=== PATIENT | male | born 1955 | race Caucasian/White ===

== ENCOUNTER 2017-09-10 09:00 | Inpatient (IN) | payer BC ==
[2017-09-10 12:08] VITALS: BMI 25.5
[2017-09-17] MEDS ORDERED: CEFAZOLIN/Water 2 GM/20 ML SYRINGE ONE (08:20)
[2017-09-17] MEDS ORDERED: HYDROcodone/Acetaminophen 10/325 mg Tablet PO PRN ×2 (09:15)
[2017-09-17] MEDS ORDERED: Tranexamic Acid 1,000 MG in Sodium Chloride 0.9% 100 ML IVPB SCH (09:15)
[2017-09-17] MEDS ORDERED: Acetaminophen 325 MG TAB PO PRN (09:15)
[2017-09-17] MEDS ORDERED: Zolpidem Tartrate 5 MG TAB PO PRN ×2 (09:15→10:15)
[2017-09-17] MEDS ORDERED: Ondansetron HCl/PF 4 MG/2 ML Vial IVP PRN ×3 (09:15→11:57)
[2017-09-17] MEDS ORDERED: Promethazine HCl 25 MG/ML VIAL IM PRN ×3 (09:15→11:57)
[2017-09-17] MEDS ORDERED: diphenhydrAMINE 25 MG CAP PO PRN ×2 (09:15→10:15)
[2017-09-17] MEDS ORDERED: Fentanyl 100 MCG/2 ML VIAL SLOW IVP PRN ×2 (09:15)
[2017-09-17] MEDS ORDERED: traMADol HCl 50 MG TAB PO PRN ×3 (09:15→10:15)
--- NOTE | 2017-09-17 09:15 | RAD ---
TWO VIEWS OF THE CHEST: COMPARISON: None. HISTORY: Preoperative radiograph. FINDINGS: Two views of the chest show normal sized cardiomediastinal silhouette. There is no evidence of consol idation, mass, or pleural effusion. Degenerative changes are seen in the spine. IMPRESSION: No evidence of acute cardiopulmonary disease. POS: [facility]
[2017-09-17] MEDS ORDERED: Midazolam HCl 2 mg/2 ml Vial ONE (09:34)
[2017-09-17] MEDS ORDERED: Fentanyl 100 MCG/2 ML VIAL ONE ×3 (09:34→12:58)
[2017-09-17] MEDS ORDERED: diphenhydrAMINE 50 MG/ML VIAL IM PRN (10:15)
[2017-09-17] MEDS ORDERED: Naloxone HCl 0.4 mg/ml Vial IVP PRN (10:15)
[2017-09-17] MEDS ORDERED: Naloxone HCl 0.4 mg/ml Vial IV PRN (10:15)
[2017-09-17] MEDS ORDERED: diphenhydrAMINE 50 MG/ML VIAL IVP PRN (10:15)
[2017-09-17] MEDS ORDERED: Promethazine HCl 25 MG SUPP PR PRN (10:15)
[2017-09-17] MEDS ORDERED: HYDROcodone/Acetaminophen 5/325 mg Tablet PO PRN ×2 (10:15)
[2017-09-17] MEDS ORDERED: Bupivacaine 0.25% 10 ML VIAL EPIDURAL PRN (10:15)
[2017-09-17] MEDS ORDERED: fentaNYL Citrate/PF 1,250 MCG, Bupivacaine 25 ML in Sodium Chloride 0.9% 250 ML 200 ML EPIDURAL SCH (10:15)
[2017-09-17] MEDS ORDERED: Hydrocerin (Eucerin) Cream 120 gm Jar TOP PRN (10:15)
[2017-09-17] MEDS ORDERED: Bupivacaine/Epinephrine 0.25% 30 ML VIAL ONE (10:34)
[2017-09-17] MEDS ORDERED: Promethazine HCl 25 MG/ML VIAL SLOW IVP PRN (11:57)
[2017-09-17] MEDS ORDERED: Ketorolac Tromethamine 30 MG/ML VIAL ONE (12:34)
--- NOTE | 2017-09-17 13:21 | OP ---
DATE OF PROCEDURE: 09/17/2016 PREOPERATIVE DIAGNOSIS: End-stage bicompartmental osteoarthritis, left hip. POSTOPERATIVE DIAGNOSIS: End-stage bicompartmental osteoarthritis, left hip. OPERATIVE PROCEDURE: Press-Fit left total hip arthroplasty. SURGEON: Percy Montes De Oca M.D. BRICK SORTER: Fred Ford PA-C. ANESTHESIA: General via endotracheal tube augmented with indwelling epidural. COMPONENTS USED: [employer], Accolade Press-Fit size 3 hip stem with Trident PSL [address] acetabular shell Press-Fit, 10 degree polyethylene fixed bearing insert, and 36 mm ceramic -2.5 n dylan length femoral head. ESTIMATED BLOOD LOSS: Less than 100 mL. FINDINGS: End-stage severe degenerative bicompartmental disease, bone on bone arthrosis, periarticul ar osteophyte formation, hemarthrosis, large serous effusion with hemarthrosis. DRAINS: None. SPECIMENS: None. COMPLICATIONS: None. COUNTS: Correct. INDICATIONS FOR SURGERY: Sarmad is a 61-year-old white male who has had progressive left hip, groin, and thigh pain amplified from standing and walking for the last 5-7 years. He has failed conservativ e management and would like to proceed with total hip arthroplasty as a definitive treatment of pain. PROCEDURE IN DETAIL: After informed consent was obtained in the preoperative holding area, the patie nt was taken to the operative suite where general anesthesia was induced. The patient was then posit ioned in the lateral decubitus position. The hip was then prepped and draped in usual sterile fashio n. The patient received preoperative antibiotics. Prior to incision, time-out was called and all me mbers of the surgical team agreed upon site, surgeon, and patient. After this, a longitudinal incisi on was made directly over the trochanter, noted by palpation extending 2 fingerbreadths above and bel ow the trochanter. The deeper subcutaneous layer was undermined with Bovie electrocautery. The ilio tibial band was encountered and incised sharply and the plane below this was developed bluntly. A christy retractor was placed to hold this opened. The lateral aspect of the trochanter and the abduct or muscles were encountered and then reflected anteriorly off the trochanter using Bovie electrocaute ry. Once this was completed, the anterior capsule was then encountered and identified and copious ca psulotomy was carried out, exposing the femoral neck and head. Dislocation maneuver was then performe d and an in situ provisional neck cut was then made using the oscillating saw. Attention was then tu rned to acetabular preparation and sequential reaming was carried out up to the appropriate diameter and a trial was then malleted into place with good firm resistance and no pullout. The permanent anjel tabular shell was then malleted squarely into place, as was the appropriate liner. Once completed, t he wound was copiously irrigated and attention was then turned to femoral preparation. Flexion and ex ternal rotation was performed of the exposed thigh and femoral elevators were then placed at the prox imal aspect of the wound. Canal finder was used to establish the length of the canal and sequential reaming was carried out, followed by broaching. Once the appropriate stability was established with the trial broaches with both flexion, extension and rotational stability, we did trial with neutral a nd 2 mm offset incremental necks. Once the appropriate size was decided upon, with good stability no linda with flexion, extension, internal and external rotation and shuck being negative, we removed the femoral trial broach and malletted into place the permanent prosthesis with good firm fit, which was also stable to rotation. Again, the hip felt very stable to flexion, extension, internal and externa l rotation. Leg lengths appeared near anatomic clinically and we were quite happy with prosthesis pl acement. Copious irrigation was then carried out through the entirety of the wound. Primary closure of the abductors was accomplished with interrupted #2 Vicryl knbbal-[id number]-edccr stitches and the IT ban d was then closed with interrupted #2 Vicryl, oversewn with a #2 running barbed Quill stitch. Subcut aneous fascia was closed with running barbed Quill stitch and a subcuticular Monocryl barbed Quill st itch was used for skin closure and augmented with skin cement. A sterile dressing was applied. The p rocedure was terminated without any complication. All counts were correct. The patient was awakened in the operative suite and taken to the recovery room in stable condition.
[2017-09-17] MEDS ORDERED: Milk Of Magnesia 30 ML UDCUP PO PRN (13:43)
[2017-09-17] MEDS ORDERED: Bisacodyl 10 MG SUPP PR PRN (13:43)
[2017-09-17] MEDS ORDERED: Senokot 8.6 MG TAB PO PRN (13:43)
[2017-09-17] MEDS ORDERED: hydrALAZINE 20 MG/ML VIAL SLOW IVP PRN (13:43)
[2017-09-17] MEDS ORDERED: Artificial Tears 18 DROP/0.9 ML EA EYE PRN (13:43)
[2017-09-17] MEDS ORDERED: Diabetic Tussin 200 MG/10 ML UDCUP PO PRN (13:43)
[2017-09-17] MEDS ORDERED: Mag-Al 1200 mg/1200 mg/30 ML UDCUP PO PRN (13:43)
[2017-09-17] MEDS ORDERED: Loperamide HCl 2 MG CAP PO PRN (13:43)
[2017-09-17] MEDS ORDERED: Chloraseptic Spray 180 ml Bottle PO PRN (13:43)
[2017-09-17] MEDS ORDERED: Ondansetron ODT 4 MG TAB PO PRN (13:43)
[2017-09-17] MEDS ORDERED: Eucerin (Mineral Oil/Petrolatum,White) 30 gm Jar TOP PRN (13:43)
[2017-09-17] MEDS ORDERED: Lidocaine 1% PF 5 ML VIAL ONE (13:48)
[2017-09-17] MEDS ORDERED: PROPOFOL 200 MG/20 ML VIAL ONE (13:48)
[2017-09-17] MEDS ORDERED: Ketorolac Tromethamine 30 MG/ML VIAL IVP SCH (14:00)
[2017-09-17] MEDS: Sodium Chloride 0.9% 1,000 ML IV SCH ×3 (14:05→23:52)
[2017-09-17] MEDS: Ketorolac Tromethamine 30 MG/ML VIAL IVP SCH ×3 (14:07→23:43)
--- NOTE | 2017-09-17 14:27 | CON ---
DATE OF CONSULTATION: 09/17/2017 PRIMARY CARE PHYSICIAN: Dr. Sarmad Stevens PRIMARY ATTENDING: Dr. Percy Montes De Oca REASON FOR ADMISSION: Left total hip replacement. REASON FOR CONSULT: Medical comanagement. HISTORY OF PRESENT ILLNESS: A 61-year-old male who has underlying history of degenerative joint disease. Previously he required right total knee replacement for osteoarthritis. Subsequently, he was having worsening of left hip pain. The patient tried all conservative measures as an outpatient basis including pain medication, but his pain on the left side kept getting worse to the point that was limiting his daily activities and that is why the patient decided to go for left hip replacement. The patient had a left hip surgery today by Dr. Percy Montes De Oca without any immediate complication. Postoperatively, the patient was transferred to Joint surgical floor. At that point, [facility] team was consulted for medical management. Patient has underlying history of hypertension which remains pretty much well controlled. Patient denies any chest pain, palpitation, shortness of breath. He denies any orthopnea, PND or leg swelling. He denies any constipation, diarrhea, melena or hematochezia. He denies any UTI symptoms. Currently, the patient denies any pain. He has epidural in place and his pain is well controlled. REVIEW OF SYSTEMS: The following complete review of systems was negative, unless otherwise mentioned in the HPI or below: Constitutional: Weight loss or gain, ability to conduct usual activities. Skin: Rash, itching. Eyes: Double vision, pain. ENT/Mouth: Nose bleeding, neck stiffness, pain, tenderness. Cardiovascular: Palpitations, dyspnea on exertion, orthopnea. Respiratory: Shortness of breath, wheezing, cough, hemoptysis, fever or night sweats. Gastrointestinal: Poor appetite, abdominal pain, heartburn, nausea, vomiting, constipation, or diarrhea. Genitourinary: Urgency, frequency, dysuria, nocturia. Musculoskeletal: Pain, swelling. Neurologic/Psychiatric: Anxiety, depression. Allergy/Immunologic: Skin rash, bleeding tendency. Please see my HPI for pertinent positive and negative. All other review of systems reviewed and negative except as mentioned in the HPI. HOSPITAL COURSE: Reviewed. PAST MEDICAL HISTORY: Hypertension, history of hayfever, degenerative joint disease. PAST SURGICAL HISTORY: Right total knee replacement, which was done by Dr. Laws in 2014. PAST PSYCHIATRIC HISTORY: Reviewed and negative. FAMILY HISTORY: Hypertension runs among several family members. Mother diagnosed with an unknown type of cancer and she is . SOCIAL HISTORY: The patient is . He drinks alcohol occasionally. He denies any smoking. He denies any other illicit drug abuse. ALLERGIES: BACTRIM DS and ATENOLOL. CURRENT HOME MEDICATIONS: Aspirin 81 mg p.o. daily, Cardizem-CD 360 mg p.o. daily, glucosamine chondroitin sulfate 1 capsule p.o. daily, multivitamin 1 tablet p.o. daily, potassium chloride 10 mEq p.o. daily, turmeric 500 mg p.o. daily, Diovan with HCTZ 320/25 one tablet p.o. daily. PHYSICAL EXAMINATION: VITAL SIGNS: Currently, blood pressure 122/87, pulse 57, respiratory rate 16, temperature 97.5, saturation 99% on room air, weight 178 pounds. GENERAL: The patient is currently alert, awake, no obvious acute distress. HEENT: Head; normocephalic, atraumatic. Eyes; pupils round, reactive to light. Extraocular muscle intact. ENT: Oropharynx within normal limits. Moist mucous membranes. No oral lesion, no pharyngeal erythema, no exudate. NECK: Supple, no JVD, no thyromegaly, no carotid bruit, no jugular venous distention. LUNGS: Clear to auscultation without any rhonchi or rales. CARDIAC: S1, S2 regular. No murmur, no gallop, no rub. ABDOMEN: Soft, bowel sounds present, nontender, nondistended. No organomegaly , no mass, no suprapubic tenderness. BACK: Unremarkable, no CVA tenderness. EXTREMITIES: Upper extremity passive movement of all joints are normal. Lower extremities; the patient's left hip surgical site is covered with a dressing. SCD in place, epidural in place. No edema, no calf tenderness. Good distal pulsation. SKIN: No skin rash. HEMATOLOGICAL: No lymphadenopathy. PSYCHIATRIC: Normal affect. NEUROLOGIC: Nonfocal examination. SIGNIFICANT LABS: CBC: WBC 5.6, hemoglobin 14.4, platelet 255. INR 1.0. BMP : Sodium 138, potassium 4.5, chloride 105, carbon dioxide 24, anion gap 15, BUN 23, creatinine 0.93, glucose 100, calcium 9.7. Urinalysis normal. Chest x- ray based on my review, no acute cardiopulmonary process. Hip x-ray reviewed by me, suggestive postoperative changes. ASSESSMENT AND PLAN: 1. Status post left total hip replacement. Currently, patient is on aspirin 325 mg p.o. b.i.d. for deep venous thrombosis prophylaxis as per protocol. We will start Pepcid 20 mg p.o. b.i.d. for GI prophylaxis. Patient will continue ferrous gluconate 324 mg p.o. b.i.d. postoperatively. The patient's pain will be controlled with pain medication. The patient will have PT, OT while in hospital as per [facility] protocol treatment. 2. Hypertension, currently well controlled. We will start losartan with hydrochlorothiazide 360/25 one tablet p.o. daily along with Cardizem-CD 360 mg p.o. daily. 3. Osteoarthritis. The patient required previously a right total knee replacement, and now status post left hip replacement. Pain will be controlled with pain medication. 4. Deep venous thrombosis prophylaxis. Patient is on aspirin 325 mg p.o. b.i.d. as per protocol. 5. Gastrointestinal prophylaxis, Pepcid 20 mg p.o. b.i.d. 6. Code status: The patient is FULL CODE. The patient is making decisions by himself. Disposition plan based on clinical course. Thank you for the consult. We will follow up with you while in hospital. Plan of care discussed with the patient in detail. MTDD
--- NOTE | 2017-09-17 14:37 | RAD ---
TWO VIEWS LEFT HIP: DATE: 09/17/17. HISTORY: Postop total hip replacement. COMPARISON: None available. FINDINGS: There are postsurgical changes related to placement left total hip prosthesis. No hardware complicat ions are seen. There is no fracture or dislocation. Subcutaneous emphysema is seen about the left h ip. No other findings. IMPRESSION: Postsurgical changes related to recent placement of left total hip prosthesis. POS: [facility]
[2017-09-17] MEDS: CEFAZOLIN/Water 2 GM/20 ML SYRINGE SLOW IVP SCH ×2 (16:21→23:43)
[2017-09-17] MEDS: Famotidine 20 MG TAB PO SCH (20:13)
[2017-09-17] MEDS: Aspirin 325 MG TAB PO SCH (20:13)
[2017-09-18] MEDS: Ketorolac Tromethamine 30 MG/ML VIAL IVP SCH ×4 (05:38→23:45)
[2017-09-18] MEDS: Valsartan 80 MG TAB PO SCH (07:13)
[2017-09-18] MEDS: Hydrochlorothiazide 25 MG TAB PO SCH (07:14)
[2017-09-18 08:02] LABS: Hemoglobin 11.8 g/dL (14.0-18.0); Mean Corpuscular HGB CONC 33.9 g/dL (32.0-36.0); Mean Corpuscular Hemoglobin 30.4 pg (27.0-31.0); Mean Corpuscular Volume 89.9 fl (80.0-94.0); Mean Platelet Volume 7.9 fL (7.4-10.4); Platelet Count 213 thou/uL (130-400); RBC Distribution Width 12.1 % (11.5-14.5); Red Blood Cell (RBC) Count 3.88 mill/uL (4.70-6.10); White Blood Cell (WBC) Count 12.9 thou/uL (4.8-10.8)
[2017-09-18] MEDS: Ferrous Gluconate 324 MG TAB PO SCH ×2 (08:12→17:34)
[2017-09-18] MEDS: Aspirin 325 MG TAB PO SCH ×2 (08:12→21:14)
[2017-09-18] MEDS: Potassium Chloride 10 MEQ TAB PO SCH (08:13)
[2017-09-18] MEDS: Multivitamin W/ Minerals 1 TAB PO SCH (08:13)
[2017-09-18] MEDS: Famotidine 20 MG TAB PO SCH ×2 (08:13→21:14)
[2017-09-18] MEDS: Senokot S 8.6-50 MG TAB PO SCH ×2 (08:13→21:14)
[2017-09-18] MEDS ORDERED: MULTIVITAMIN PO SCH (09:00)
--- NOTE | 2017-09-18 10:12 | PDOC.PN ---
- Subjective Encounter Start Date: 09/18/17 Encounter Start Time: 08:10 -: old records requested/rev Patient seen and examined for medical problems. No new complaints. No overnight events pain controlled, doing well - Objective Resuscitation Status: Resuscitation Status FULL:Full Resuscitation MAR Reviewed: Yes Vital Signs & Weight: Vital Signs (12 hours) Temp Pulse Resp BP Pulse Ox 09/18/17 07:33 99.2 F 67 16 165/80 H 99 09/18/17 04:39 98.8 F 80 16 171/77 H 97 09/17/17 23:43 99.4 F 87 16 164/79 H 98 Weight Weight 178 lb I&O: 09/17/17 09/18/17 09/19/17 06:59 06:59 06:59 Intake Total 2600 Output Total 1300 Balance 1300 Result Diagrams: 09/18/17 07:43 Phys Exam - Physical Examination Constitutional: NAD HEENT: PERRLA, moist MMs, sclera anicteric Neck: no JVD, supple Respiratory: no wheezing, no rales, no rhonchi Cardiovascular: RRR, no significant murmur, no rub Gastrointestinal: soft, non-tender, no distention, positive bowel sounds Musculoskeletal: no edema, pulses present epidural in place, surgical site with dressing Neurological: non-focal, normal sensation, moves all 4 limbs Psychiatric: normal affect, A&O x 3 Skin: no rash, normal turgor Dx/Plan (1) Status post total hip replacement, left Code(s): Z96.642 - PRESENCE OF LEFT ARTIFICIAL HIP JOINT Status: Acute (2) Hypertension Code(s): I10 - ESSENTIAL (PRIMARY) HYPERTENSION Status: Chronic (3) Osteoarthritis Code(s): M19.90 - UNSPECIFIED OSTEOARTHRITIS, UNSPECIFIED SITE Status: Chronic - Plan cont current plan of care, PT/OT * pt is on aspirin for DVT prophylaxis as per [facility] protocol * continue PT/OT as per [facility] protocol * pain control with pain meds as below * epidural as per anesthesia * medication reviewed as below * symptomatic treatment * continue pepcid for GI prophylaxis. Review of Systems - Review of Systems Eyes: negative: Pain, Vision Change, Conjunctivae Inflammation, Eyelid Inflammation, Redness, Other ENT: negative: Ear Pain, Ear Discharge, Nose Pain, Nose Discharge, Nose Congestion, Mouth Pain, Mouth Swelling, Throat Pain, Throat Swelling, Other Respiratory: negative: Cough, Dry, Shortness of Breath, Hemoptysis, SOB with Excertion, Pleuritic Pain, Sputum, Wheezing Cardiovascular: negative: chest pain, palpitations, orthopnea, paroxysmal nocturnal dyspnea, edema, light headedness, other Gastrointestinal: negative: Nausea, Vomiting, Abdominal Pain, Diarrhea, Constipation, Melena, Hematochezia, Other Genitourinary: negative: Dysuria, Frequency, Incontinence, Hematuria, Retention , Other Musculoskeletal: negative: Neck Pain, Shoulder Pain, Arm Pain, Back Pain, Hand Pain, Leg Pain, Foot Pain, Other Skin: negative: Rash, Lesions, Jose Miguel, Bruising, Other - Medications/Allergies Allergies/Adverse Reactions: Allergies Allergy/AdvReac Type Severity Reaction Status Date / Time atenolol Allergy Severe DIFFICULTY Verified 09/10/17 12:03 BREATHING sulfamethoxazole Allergy Intermediate Rash Verified 09/10/17 12:03 [From Bactrim] trimethoprim [From Bactrim] Allergy Intermediate Rash Verified 09/10/17 12:03 Medications: Current Medications Acetaminophen (Tylenol) 650 mg PO Q4H PRN PRN Reason: ALEMAN/ T > 101F; Mild Pain (1-3) Hydrocodone Bitart/Acetaminophen ([place]oto 5/325) 1 tab PO Q4H PRN PRN Reason: Mild Pain 0-3 Hydrocodone Bitart/Acetaminophen ([place] 5/325) 2 tab PO Q4H PRN PRN Reason: For Moderate Pain 4-6 Al Hydroxide/Mg Hydroxide (Maalox) 15 ml PO Q4H PRN PRN Reason: Heartburn or Indigestion Artificial Tears (Tears Naturale) 0 drop EA EYE PRN PRN PRN Reason: Dry Eyes Aspirin (Aspirin) 325 mg PO BID [facility] Last Admin: 09/18/17 08:12 Dose: 325 mg Bisacodyl (Dulcolax) 10 mg OK DAILYPRN PRN PRN Reason: Constipation Diltiazem HCl (Cardizem Cd) 360 mg PO DAILY [facility] Last Admin: 09/18/17 07:13 Dose: 360 mg Diphenhydramine HCl (Benadryl) 25 mg PO Q3H PRN PRN Reason: Itching Diphenhydramine HCl (Benadryl) 25 mg IM Q3H PRN PRN Reason: Itching Diphenhydramine HCl (Benadryl) 25 mg IVP Q3H PRN PRN Reason: Itching Emollient Cream (Hydrocerin Cream) 0 gm TOP PRN PRN PRN Reason: Itching Famotidine (Pepcid) 20 mg PO BID [facility] Last Admin: 09/18/17 08:13 Dose: 20 mg Ferrous Gluconate (Fergon) 324 mg PO BID[facility] Last Admin: 09/18/17 08:12 Dose: 324 mg Guaifenesin (Robitussin Sf) 200 mg PO Q4H PRN PRN Reason: Cough Hydralazine HCl (Apresoline) 10 mg SLOW IVP Q4H PRN PRN Reason: Systolic BP > 180 Hydrochlorothiazide (Hydrochlorothiazide) 25 mg PO QAM [facility] Last Admin: 09/18/17 07:14 Dose: 25 mg Sodium Chloride (Normal Saline 0.9%) 1,000 mls @ 100 mls/hr IV .Q10H [facility] Last Admin: 09/17/17 23:52 Dose: 1,000 mls Fentanyl Citrate 1,250 mcg/Bupivacaine HCl 25 ml/ Sodium Chloride 250 mls @ 6 mls/hr EPIDURAL INF [facility] Iron/Minerals/Multivitamins (Theragran M) 1 tab PO DAILY [facility] Last Admin: 09/18/17 08:13 Dose: 1 tab Ketorolac Tromethamine (Toradol) 30 mg IVP Q6HR [facility] Stop: 09/19/17 06:01 Last Admin: 09/18/17 05:38 Dose: 30 mg Loperamide HCl (Imodium) 2 mg PO PRN PRN PRN Reason: Diarrhea/Loose Stools Magnesium Hydroxide (Milk Of Magnesium) 30 ml PO DAILYPRN PRN PRN Reason: Constipation Mineral Oil/White Petrolatum (Eucerin Cream) 0 gm TOP BIDPRN PRN PRN Reason: Dry Skin Naloxone HCl (Narcan) 0.2 mg IV Q5MIN PRN PRN Reason: RR <=8 OR OBTUNDED/UNAROUSABLE Naloxone HCl (Narcan) 0.1 mg IVP Q15MIN PRN PRN Reason: URINARY RETENTION Ondansetron HCl (Zofran) 4 mg IVP Q6H PRN PRN Reason: Nausea/Vomiting Ondansetron HCl (Zofran Odt) 4 mg PO Q6H PRN PRN Reason: Nausea/Vomiting Phenol (Chloraseptic [place] 180 Ml Bot) 0 ml PO PRN PRN PRN Reason: Sore Throat Potassium Chloride (Klor-Con 10) [facility] Admin: 09/18/17 08:13 Dose: 10 meq Promethazine HCl (Phenergan) 12.5 mg IM Q4H PRN PRN Reason: Nausea Promethazine HCl (Phenergan Suppository) 25 mg OK Q4H PRN PRN Reason: Nausea/Vomiting Senna (Senokot) 2 tab PO HSPRN PRN PRN Reason: Constipation Senna/Docusate Sodium (Senokot S) 2 tab PO BID [facility] Last Admin: 09/18/17 08:13 Dose: 2 tab Sodium Chloride (Flush - Normal Saline) 10 ml IVF PRN PRN PRN Reason: Saline Flush Tramadol HCl (Ultram) 50 mg PO Q6H PRN PRN Reason: Mild Pain 1-3 Tramadol HCl (Ultram) 100 mg PO Q6H PRN PRN Reason: Moderate Pain 4-6 Valsartan (Diovan) 320 mg PO [facility] Last Admin: 09/18/17 07:13 Dose: 320 mg Zolpidem Tartrate (Ambien) 5 mg PO HSPRN PRN PRN Reason: Insomnia
[2017-09-18] MEDS: Sodium Chloride 0.9% 1,000 ML IV SCH ×3 (11:45→23:27)
[2017-09-19] MEDS: Ketorolac Tromethamine 30 MG/ML VIAL IVP SCH (05:31)
[2017-09-19 05:36] LABS: Hemoglobin 11.6 g/dL (14.0-18.0); Mean Corpuscular HGB CONC 33.2 g/dL (32.0-36.0); Mean Corpuscular Volume 90.4 fl (80.0-94.0); Mean Platelet Volume 8.2 fL (7.4-10.4); Platelet Count 204 thou/uL (130-400); RBC Distribution Width 12.2 % (11.5-14.5); Red Blood Cell (RBC) Count 3.88 mill/uL (4.70-6.10); White Blood Cell (WBC) Count 12.3 thou/uL (4.8-10.8)
[2017-09-19] MEDS: Potassium Chloride 10 MEQ TAB PO SCH (08:19)
[2017-09-19] MEDS: Multivitamin W/ Minerals 1 TAB PO SCH (08:19)
[2017-09-19] MEDS: Aspirin 325 MG TAB PO SCH (08:19)
[2017-09-19] MEDS: Ferrous Gluconate 324 MG TAB PO SCH (08:19)
[2017-09-19] MEDS: Famotidine 20 MG TAB PO SCH (08:19)
[2017-09-19] MEDS: Valsartan 80 MG TAB PO SCH (08:20)
[2017-09-19] MEDS: Hydrochlorothiazide 25 MG TAB PO SCH (08:20)
[2017-09-19] MEDS: Senokot S 8.6-50 MG TAB PO SCH (08:21)
--- NOTE | 2017-09-19 09:32 | DIS ---
DATE OF ADMISSION: 09/17/2017 DATE OF DISCHARGE: 09/19/2017 PRIMARY CARE PHYSICIAN: Dr. Sarmad Stevens. DISCHARGE DISPOSITION: Home with outpatient physical therapy. PRIMARY DISCHARGE DIAGNOSIS: Status post left total hip replacement. SECONDARY DISCHARGE DIAGNOSES: Hypertension, osteoarthritis. PRIMARY PROCEDURES AND OPERATIONS: Left hip replacement by Dr. Montes De Oca. RADIOLOGICAL INVESTIGATION: Chest x-ray normal. Hip x-ray postoperative changes. SIGNIFICANT LABORATORY DATA: WBC 12.3, hemoglobin 11.6, platelet 204. DISCHARGE MEDICATIONS: Aspirin 81 mg p.o. daily, Cardizem-CD 360 mg p.o. daily, glucosamine chondroi tin sulfate 1 tablet p.o. daily, vitamin 1 tablet daily, potassium chloride 10 mEq p.o. daily, turmer ic 500 mg p.o. daily, valsartan with hydrochlorothiazide 320/25 one tablet p.o. daily. The patient w ill get pain medication from primary care team and the patient will get aspirin for DVT prophylaxis. CONTRAINDICATIONS: None. CODE STATUS: FULL CODE. INPATIENT CONSULTANTS: Dr. Montes De Oca was primary. [facility] team was consulted for medical comanagement. ALLERGIES: ATENOLOL, SULFA DRUGS. DISCHARGE PLAN: Post hospital, the patient will have outpatient physical therapy. The patient will follow up with Dr. Percy Montes De Oca on 09/25/2017. He will make appointment with primary care physician. HOSPITAL COURSE: A 61-year-old male who was admitted by Dr. Montes De Oca electively for left hip replaceme nt, which was done on 09/17/2017. After surgery at [facility], [facility] team was consulted for me dical comanagement. Please see my consult note for detail. The patient did not have any complicatio ns while in hospital. He had epidural in place. Physical therapy and occupational therapy. We resu med his home medication while in hospital. He did very well with [facility] protocol treatment . Today, the patient is planned for discharge with outpatient physical therapy. The patient is seen an d examined at bedside today. All review of system reviewed with him and negative. PHYSICAL EXAMINATION: VITAL SIGNS: Currently, temperature 98.9, pulse 63, respiratory rate 16, saturation 97%, blood press ure 163/76, weight 178 pounds. GENERAL: The patient is currently alert, awake, no acute distress. HEAD: Normocephalic, atraumatic. EYES: Pupils round, reactive to light. Extraocular muscle intact. ENT: Oropharynx within normal limits. Moist mucous membranes. NECK: Supple, no JVD. LUNGS: Clear to auscultation without any rhonchi or rales. CARDIAC: S1, S2 regular without any murmur. ABDOMEN: Soft and benign. EXTREMITIES: No edema. Surgical site is clean and healthy. NEUROLOGIC: Nonfocal examination. The patient will continue all his previous home medication and patient is medically stable for discha rge today and we will sign off.
--- NOTE | 2017-09-19 09:56 | PDOC.PN ---
- Subjective Encounter Start Date: 09/19/17 Encounter Start Time: 09:30 Patient seen and examined for medical management. No new complaints. No overnight events - Objective Resuscitation Status: Resuscitation Status FULL:Full Resuscitation MAR Reviewed: Yes Vital Signs & Weight: Vital Signs (12 hours) Temp Pulse Resp BP Pulse Ox 09/19/17 08:15 98.9 F 63 16 09/19/17 07:53 98.9 F 63 16 163/76 H 97 09/19/17 04:30 98.8 F 58 L 16 163/70 H 99 09/19/17 00:00 99.8 F H 69 16 156/78 H 94 L Weight Admit Weight 178 lb Weight 178 lb I&O: 09/18/17 09/19/17 09/20/17 06:59 06:59 06:59 Intake Total 2600 2150 Output Total 1300 2500 Balance 1300 -350 Result Diagrams: 09/19/17 04:46 Phys Exam - Physical Examination Constitutional: NAD HEENT: PERRLA, moist MMs, sclera anicteric Neck: no JVD, supple Respiratory: no wheezing, no rales, no rhonchi Cardiovascular: RRR, no significant murmur, no rub Gastrointestinal: soft, non-tender, no distention, positive bowel sounds Musculoskeletal: no edema, pulses present Neurological: non-focal, normal sensation, moves all 4 limbs Psychiatric: normal affect, A&O x 3 Skin: no rash, normal turgor Dx/Plan (1) Status post total hip replacement, left Code(s): Z96.642 - PRESENCE OF LEFT ARTIFICIAL HIP JOINT Status: Acute (2) Hypertension Code(s): I10 - ESSENTIAL (PRIMARY) HYPERTENSION Status: Chronic (3) Osteoarthritis Code(s): M19.90 - UNSPECIFIED OSTEOARTHRITIS, UNSPECIFIED SITE Status: Chronic - Plan cont current plan of care, PT/OT, social science analyst * pt is currently on aspirin for DVT prophylaxis as per [facility] protocol * continue PT/OT as per [facility] protocol for now * outpt PT after discharge * pain controlled with pain meds as below * epidural will be removed today as per nesthesia * medication reviewed as below * symptomatic treatment * continue pepcid for GI prophylaxis. * pt is planned for discharge today * resume home medication on discharge * stable for discharge medically * pain meds on discharge as per primary team * see my discharge summery Review of Systems - Review of Systems Eyes: negative: Pain, Vision Change, Conjunctivae Inflammation, Eyelid Inflammation, Redness, Other ENT: negative: Ear Pain, Ear Discharge, Nose Pain, Nose Discharge, Nose Congestion, Mouth Pain, Mouth Swelling, Throat Pain, Throat Swelling, Other Respiratory: negative: Cough, Dry, Shortness of Breath, Hemoptysis, SOB with Excertion, Pleuritic Pain, Sputum, Wheezing Cardiovascular: negative: chest pain, palpitations, orthopnea, paroxysmal nocturnal dyspnea, edema, light headedness, other Gastrointestinal: negative: Nausea, Vomiting, Abdominal Pain, Diarrhea, Constipation, Melena, Hematochezia, Other Genitourinary: negative: Dysuria, Frequency, Incontinence, Hematuria, Retention , Other Musculoskeletal: negative: Neck Pain, Shoulder Pain, Arm Pain, Back Pain, Hand Pain, Leg Pain, Foot Pain, Other Skin: negative: Rash, Lesions, Jose Miguel, Bruising, Other - Medications/Allergies Allergies/Adverse Reactions: Allergies Allergy/AdvReac Type Severity Reaction Status Date / Time atenolol Allergy Severe DIFFICULTY Verified 09/10/17 12:03 BREATHING sulfamethoxazole Allergy Intermediate Rash Verified 09/10/17 12:03 [From Bactrim] trimethoprim [From Bactrim] Allergy Intermediate Rash Verified 09/10/17 12:03 Medications: Current Medications Acetaminophen (Tylenol) 650 mg PO Q4H PRN PRN Reason: ALEMAN/ T > 101F; Mild Pain (1-3) Last Admin: 09/18/17 21:14 Dose: 650 mg Hydrocodone Bitart/Acetaminophen ([place] 5/325) 1 tab PO Q4H PRN PRN Reason: Mild Pain 0-3 Hydrocodone Bitart/Acetaminophen ([place] 5/325) 2 tab PO Q4H PRN PRN Reason: For Moderate Pain 4-6 Al Hydroxide/Mg Hydroxide (Maalox) 15 ml PO Q4H PRN PRN Reason: Heartburn or Indigestion Artificial Tears (Tears Naturale) 0 drop EA EYE PRN PRN PRN Reason: Dry Eyes Aspirin (Aspirin) 325 mg PO BID [facility] Last Admin: 09/19/17 08:19 Dose: 325 mg Bisacodyl (Dulcolax) 10 mg [place] DAILYPRN PRN PRN Reason: Constipation Diltiazem HCl (Cardizem Cd) 360 mg PO DAILY [facility] Last Admin: 09/19/17 08:19 Dose: 360 mg Diphenhydramine HCl (Benadryl) 25 mg PO Q3H PRN PRN Reason: Itching Diphenhydramine HCl (Benadryl) 25 mg IM Q3H PRN PRN Reason: Itching Diphenhydramine HCl (Benadryl) 25 mg IVP Q3H PRN PRN Reason: Itching Emollient Cream (Hydrocerin Cream) 0 gm TOP PRN PRN PRN Reason: Itching Famotidine (Pepcid) 20 mg PO BID [facility] Last Admin: 09/19/17 08:19 Dose: 20 mg Ferrous Gluconate (Fergon) 324 mg PO BID[facility] Last Admin: 09/19/17 08:19 Dose: 324 mg Guaifenesin (Robitussin Sf) 200 mg PO Q4H PRN PRN Reason: Cough Hydralazine HCl (Apresoline) 10 mg SLOW IVP Q4H PRN PRN Reason: Systolic BP > 180 Hydrochlorothiazide (Hydrochlorothiazide) 25 mg PO QAM [facility] Last Admin: 09/19/17 08:20 Dose: 25 mg Sodium Chloride (Normal Saline 0.9%) 1,000 mls @ 100 mls/hr IV .Q10H [facility] Last Admin: 09/18/17 23:27 Dose: Not Given Fentanyl Citrate 1,250 mcg/Bupivacaine HCl 25 ml/ Sodium Chloride 250 mls @ 6 mls/hr EPIDURAL INF [facility] Last Admin: 09/19/17 04:43 Dose: 250 mls Iron/Minerals/Multivitamins (Theragran M) 1 tab PO DAILY [facility] Last Admin: 09/19/17 08:19 Dose: 1 tab Loperamide HCl (Imodium) 2 mg PO PRN PRN PRN Reason: Diarrhea/Loose Stools Magnesium Hydroxide (Milk Of Magnesium) 30 ml PO DAILYPRN PRN PRN Reason: Constipation Mineral Oil/White Petrolatum (Eucerin Cream) 0 gm TOP BIDPRN PRN PRN Reason: Dry Skin Naloxone HCl (Narcan) 0.2 mg IV Q5MIN PRN PRN Reason: RR <=8 OR OBTUNDED/UNAROUSABLE Naloxone HCl (Narcan) 0.1 mg IVP Q15MIN PRN PRN Reason: URINARY RETENTION Ondansetron HCl (Zofran) 4 mg IVP Q6H PRN PRN Reason: Nausea/Vomiting Ondansetron HCl (Zofran Odt) 4 mg PO Q6H PRN PRN Reason: Nausea/Vomiting Phenol (Chloraseptic [place] 180 Ml Bot) 0 ml PO PRN PRN PRN Reason: Sore Throat Potassium Chloride (Klor-Con 10) 10 meq PO [facility] Last Admin: 09/19/17 08:19 Dose: 10 meq Promethazine HCl (Phenergan) 12.5 mg IM Q4H PRN PRN Reason: Nausea Promethazine HCl (Phenergan Suppository) 25 mg [place] Q4H PRN PRN Reason: Nausea/Vomiting Senna (Senokot) 2 tab PO HSPRN PRN PRN Reason: Constipation Senna/Docusate Sodium (Senokot S) 2 tab PO BID [facility] Last Admin: 09/19/17 08:21 Dose: Not Given Sodium Chloride (Flush - Normal Saline) 10 ml IVF PRN PRN PRN Reason: Saline Flush Last Admin: 09/19/17 08:19 Dose: 10 ml Tramadol HCl (Ultram) 50 mg PO Q6H PRN PRN Reason: Mild Pain 1-3 Tramadol HCl (Ultram) 100 mg PO Q6H PRN PRN Reason: Moderate Pain 4-6 Last Admin: 09/19/17 08:20 Dose: 100 mg Valsartan (Diovan) 320 mg PO [facility] Last Admin: 09/19/17 08:20 Dose: 320 mg Zolpidem Tartrate (Ambien) 5 mg PO HSPRN PRN PRN Reason: Insomnia
[2017-09-19 12:03] VITALS: BP 147/77; TEMP 97.8
== END 2017-09-19 13:15 | disposition home or self-care (01) | DRG 470 ==
LOC: SURG A 09-17 07:49
PROVIDERS: ADMIT Orthopaedic Surgery; ATTEND Orthopaedic Surgery
PROC: 0SRB04A Replacement of Left Hip Joint with Ceramic on Polyethylene Synthetic Substitute, Uncemented, Open Approach (ICD-10-PCS; principal; 2017-09-17)
DX: M16.12 Unilateral primary osteoarthritis, left hip (principal); I10 Essential (primary) hypertension; Z88.8 Allergy status to other drugs, medicaments and biological substances; Z88.2 Allergy status to sulfonamides; Z79.899 Other long term (current) drug therapy; Z79.82 Long term (current) use of aspirin
CPT/HCPCS: 36415; 71046; 85027; G8978-GP-CK; G8979-GP-CI; G8987-GO-CI; G8988-GO-CI; G8989-GO-CI; J1885; J2001; J2250; J2704; J3010; J3370; J3490; J7050

== ENCOUNTER 2017-09-10 11:38 | Outpatient (CLI) | payer BC ==
[2017-09-10 14:10] LABS: #Eosinphils 0.1 thou/uL (0.0-0.7); #Lymphocytes 1.3 thou/uL (1.20-3.40); #Monocytes 0.6 thou/uL (0.11-0.59); #Neutrophils 3.6 thou/uL (1.40-6.50); %Basophils 0.4 % (0.0-1.0); %Eosinophils 1.7 % (0.0-10.0); %Lymphocytes 23.8 % (21.0-51.0); %Neutrophils 63.1 % (42.0-75.0); Hemoglobin 14.4 g/dL (14.0-18.0); Mean Corpuscular HGB CONC 34.3 g/dL (32.0-36.0); Mean Corpuscular Hemoglobin 30.9 pg (27.0-31.0); Mean Corpuscular Volume 90.2 fl (80.0-94.0); Mean Platelet Volume 8.7 fL (7.4-10.4); Platelet Count 255 thou/uL (130-400); Red Blood Cell (RBC) Count 4.65 mill/uL (4.70-6.10); White Blood Cell (WBC) Count 5.6 thou/uL (4.8-10.8)
[2017-09-10 14:12] LABS: Bilirubin Negative (Negative); Blood, Urine Negative (Negative); Clarity CLEAR (Clear); Glucose, Urine (Dipstick) Negative (Negative); Leukocyte Negative (Negative); Nitrite Negative (Negative); Protein, Urine (Dipstick) Negative (Neg-Trace); Urobilinogen 0.2 mg/dL (0.2-1.0); pH, Urine 6.5 (5.0-9.0)
[2017-09-10 14:16] LABS: Prothrombin Time 13.8 SEC (12.0-14.7)
[2017-09-10 14:29] LABS: Anion Gap 15 mmol/L (10-20); BUN (Urea Nitrogen) 23 mg/dL (8.4-25.7); Calc. Creatinine Clearance 0 mL/min (70-130); Calcium 9.7 mg/dL (7.8-10.44); Carbon Dioxide 24 mmol/L (22-29); Chloride 104 mmol/L (98-107); Estimated GFR-MDRD 83; Glucose 100 mg/dL (70-105); Potassium 4.5 mmol/L (3.5-5.1); Sodium 138 mmol/L (136-145)
[2017-09-10 14:32] LABS: Bacteria/HPF None Seen HPF (None Seen); Hyaline Casts/LPF NONE SEEN LPF (0-3 Hyaline); RBC/HPF None Seen HPF (0-3); Squamous Epithelial 0-3 HPF (0-3); WBC/HPF None Seen HPF (0-3)
--- NOTE | 2017-09-10 16:44 | EKG ---
Test Reason : Blood Pressure : / mmHG Vent. Rate : 047 BPM Atrial Rate : 047 BPM P-R Int : 000 ms QRS Dur : 088 ms QT Int : 432 ms P-R-T Axes : 000 029 007 degrees QTc Int : 382 ms Marked sinus bradycardia Low atrial pacemaker site Abnormal ECG No previous ECGs available Confirmed by DR. Damian NATHAN ([id number]) on 09/10/2017 4:43:27 PM Referred By: ERIN Confirmed By:DR. Damian NATHAN
== END 2017-09-10 11:39 | disposition home or self-care (01) ==
LOC: LABBT 11:38
PROVIDERS: ATTEND Orthopaedic Surgery
DX: Z01.818 Encounter for other preprocedural examination (principal); M16.12 Unilateral primary osteoarthritis, left hip
CPT/HCPCS: 80048; 81001; 85025; 85610; 86850; 86900; 86901; 87081; 93005; 93010

== ENCOUNTER 2022-03-27 07:58 | Outpatient (CLI) | payer MEDICARE | END 2022-03-27 07:59 | disposition home or self-care (01) | LOC: ULT 07:58 | PROVIDERS: ATTEND Internal Medicine Nephrology | DX: I12.9 Hypertensive chronic kidney disease with stage 1 through stage 4 chronic kidney disease, or unspecified chronic kidney disease (principal); N18.30 Chronic kidney disease, stage 3 unspecified; E87.6 Hypokalemia | CPT/HCPCS: 36415; 76770; 80048; 81001; 82088; 82306; 82533; 82570; 83735; 83970; 84100; 84156; 84244; 85025; 86038; 86225; 93975 ==